=== PATIENT | female | born 2000 | race Two or more races ===

== ENCOUNTER 2020-10-10 03:23 | Inpatient (IN) ==
[2020-10-10] MEDS ORDERED: ACETAMINOPHEN 325 MG TABLET PO PRN ×2 (03:33→15:51)
[2020-10-10] MEDS ORDERED: BUTORPHANOL 2 MG/ML VIAL IV PRN (03:33)
[2020-10-10] MEDS ORDERED: ONDANSETRON 4 MG/2 ML VIAL IV PRN ×2 (03:33→15:51)
[2020-10-10] MEDS ORDERED: MEPERIDINE 50 MG/1 ML VIAL IV PRN (03:33)
[2020-10-10] MEDS ORDERED: LACTATED RINGERS 1,000 ML IV SCH (04:00)
[2020-10-10] MEDS ORDERED: OXYTOCIN/LR 20 UNIT/1,000 ML BAG IV SCH (04:00)
[2020-10-10 07:01] LABS: Basophils % 0.2 % (0.0-0.8); Eosinophils % 0.3 % (0.00-10.9); Hematocrit 26.1 VOL% (35.7-47.0); Hemoglobin 8.7 GM/DL (12.0-16.0); Immature Granulocytes % 0.9 %; Immature Granulocytes Absolute 0.08 #; Lymphocytes # 2.5 10*3/uL (1.4-4.0); Lymphocytes % 28.4 % (21.3-54.2); Mean Corpuscular HGB Conc 33.3 GM/DL (32-36); Mean Corpuscular Volume 78.6 FL (87-102); Mean Platelet Volume 10.9 FL (9.6-12.0); Monocytes % 7.2 % (1.7-12.7); Platelet Count 279 T/CUMM (130-400); Red Blood Count 3.32 MC/CUMM (3.8-5.5); Red Cell Distribution Width 16.9 % (9.3-17.3)
[2020-10-10 07:28] LABS: Bilirubin,Total 0.4 MG/DL (0.2-1.0); Calcium 8.3 MG/DL (8.5-10.1); Osmolality,Calculated 276.5 MOS/KG (273-304); Potassium 3.7 MMOL/L (3.5-5.1); Total Protein 6.5 G/DL (6.4-8.3)
[2020-10-10] MEDS ORDERED: LACTATED RINGERS 1,000 ML IV ONE (10:21)
[2020-10-10] MEDS ORDERED: CITRIC ACID/SODIUM CITRATE 30 ML UDCUP PO ONE (10:21)
[2020-10-10] MEDS ORDERED: FAMOTIDINE 20 MG/2 ML VIAL IV ONE (10:21)
[2020-10-10] MEDS ORDERED: ePHEDrine 50 MG/ML VIAL IV PRN (10:22)
[2020-10-10] MEDS ORDERED: NALOXONE 0.4 MG/ML VIAL IV PRN (10:22)
[2020-10-10] MEDS ORDERED: hydrOXYzine HCL 25 MG/1 ML VIAL IM PRN (10:22)
[2020-10-10] MEDS ORDERED: diphenhydrAMINE 50 MG/1 ML VIAL IV PRN ×2 (10:22)
[2020-10-10] MEDS ORDERED: PROMETHAZINE 25 MG/1 ML VIAL IM ONE (10:22)
[2020-10-10] MEDS ORDERED: fentaNYL 2 MCG/ROPIV 0.2% EPID 100 ML EPIDURAL SCH (10:30)
[2020-10-10 12:30] LABS: Bilirubin,Urine Negative (Negative); Blood, Urine Negative (Negative); Glucose,Urine (UA) Negative (Negative); Ketones,Urine Negative (Negative); Nitrite,Urine Negative (Negative); Protein,Urine Negative; RBC,Urine <1 /HPF (0-4); Urine Appearance CLEAR (Clear); Urine Color Straw (Yellow); Urine Specific Gravity 1.004 (1.001-1.035); Urine Urobilinogen < 2.0 EU/DL (0.2-1.0)
[2020-10-10] MEDS ORDERED: miSOPROStoL 200 MCG TABLET ONE (14:49)
[2020-10-10] MEDS ORDERED: TRANEXAMIC ACID 1,000 MG/10 ML VIAL ONE (14:49)
[2020-10-10] MEDS ORDERED: METHYLERGONOVINE 0.2 MG/1 ML AMP ONE (14:50)
[2020-10-10] MEDS ORDERED: OXYTOCIN/LR 20 UNIT/1,000 ML BAG IV ONE ×2 (14:50→15:51)
[2020-10-10] MEDS ORDERED: CARBOPROST TROMETHAMINE 250 MCG/ML AMP IM ONE (14:50)
[2020-10-10 15:43] LABS: Cord Arterial Blood HCO3 18.8 MMOL/L
[2020-10-10 15:47] LABS: Cord Venous Blood HCO3 20.4 MMOL/L; Cord Venous Blood PCO2 38.6 MMHG; Cord Venous Blood PO2 30.7
[2020-10-10] MEDS ORDERED: BENZOCAINE 20%/MENTHOL 0.5% SPRAY 56 GM CAN TOP PRN (15:51)
[2020-10-10] MEDS ORDERED: RHO(D) IMMUNE GLOBULIN 300 MCG SYRINGE IM ONE (15:51)
[2020-10-10] MEDS ORDERED: HYDROCORTISONE 2.5% RECTAL CREAM 30 GM TUBE TOP PRN (15:51)
[2020-10-10] MEDS ORDERED: IBUPROFEN 800 MG TABLET PO PRN (15:51)
[2020-10-10] MEDS ORDERED: MEASLES/MUMPS/RUBELLA VACCINE 0.5 ML VIAL SUBCUT ONE (15:51)
[2020-10-10] MEDS ORDERED: DIPH/TET/ACEL PERT BOOSTER VACCINE 0.5 ML VIAL IM ONE (15:51)
[2020-10-10] MEDS ORDERED: oxyCODONE/ACETAMINOPHEN 5-325 MG TABLET PO PRN ×2 (15:51)
[2020-10-10] MEDS ORDERED: WITCH HAZEL PADS 100/JAR TOP PRN (15:51)
[2020-10-10] MEDS ORDERED: LANOLIN 50% CREAM 0.3 OZ TUBE TOP PRN (15:51)
[2020-10-10] MEDS ORDERED: BISACODYL 10 MG SUPP RECTAL PRN (15:51)
[2020-10-10] MEDS: DOCUSATE SODIUM 100 MG CAPSULE PO SCH (21:12)
[2020-10-11 06:33] LABS: Basophils % 0.1 % (0.0-0.8); Eosinophils % 0.1 % (0.00-10.9); Hematocrit 21.6 VOL% (35.7-47.0); Hemoglobin 7.3 GM/DL (12.0-16.0); Immature Granulocytes % 0.7 %; Immature Granulocytes Absolute 0.11 #; Mean Corpuscular HGB Conc 33.8 GM/DL (32-36); Mean Corpuscular Volume 78.8 FL (87-102); Mean Platelet Volume 11.3 FL (9.6-12.0); Monocytes % 6.2 % (1.7-12.7); Neutrophils % 73.9 % (38.7-73.9); Platelet Count 240 T/CUMM (130-400); Red Blood Count 2.74 MC/CUMM (3.8-5.5); Red Cell Distribution Width 17.1 % (9.3-17.3); White Blood Count 15.7 T/CUMM (4-12)
[2020-10-11] MEDS: FERROUS SULFATE 325 MG TABLET PO SCH ×3 (10:48→21:21)
[2020-10-11] MEDS: DOCUSATE SODIUM 100 MG CAPSULE PO SCH ×2 (10:48→21:21)
[2020-10-11] MEDS ORDERED: SODIUM CHLORIDE 0.9% 1,000 ML IV PRN (12:46)
[2020-10-12 06:11] LABS: Hematocrit 30.5 VOL% (35.7-47.0)
[2020-10-12 07:36] VITALS: BP 116/65
[2020-10-12] MEDS: DOCUSATE SODIUM 100 MG CAPSULE PO SCH (08:49)
[2020-10-12] MEDS: FERROUS SULFATE 325 MG TABLET PO SCH (08:49)
[2020-10-12] MEDS ORDERED: INFLUENZA VIRUS VACCINE 0.5 ML SYRINGE IM ONE (09:00)
== END 2020-10-12 13:10 | disposition home or self-care (01) | DRG 560 ==
LOC: N.LD 03:23 → N.OB 18:35
PROVIDERS: ADMIT Obstetrics & Gynecology; ATTEND Obstetrics & Gynecology